=== PATIENT | male | born 1950 | race Caucasian/White ===

== ENCOUNTER 2019-02-13 01:39 | Inpatient (IN) ==
[2019-02-13] MEDS ORDERED: Naloxone 0.4 MG/ML INJ IVP PRN (02:40)
[2019-02-13] MEDS ORDERED: *HR* Dextrose 50 % in Water (Syg) 50 ML SYRINGE IVP PRN (02:42)
[2019-02-13] MEDS ORDERED: D5% in Water 1,000 ML IVC PRN (02:42)
[2019-02-13] MEDS ORDERED: Dextrose Gel 15 GM/37.5 ML TUBE PO PRN ×2 (02:42)
[2019-02-13] MEDS ORDERED: *HR* Heparin 5,000 UNIT/ML VIAL IVP PRN ×2 (03:44)
[2019-02-13] MEDS ORDERED: *HR* Heparin 5,000 UNIT/ML VIAL IVP ONE (03:44)
[2019-02-13] MEDS: Heparin 25,000 UNIT/250 ML D5W 25,000 UNIT/250 ML IV.SOLN IVC SCH ×2 (04:00→20:10)
[2019-02-13 04:17] LABS: Hematocrit 51.3 % (37.5-50.1); Mean Corpuscular HGB Conc 33.1 g/dL (31.6-35.5); Mean Corpuscular Hemoglobin 27.4 pg (28.0-33.3); Mean Corpuscular Volume 82.6 fL (83.0-100.0); Mean Platelet Volume 9.5 fL (9.4-12.4); Platelet Count 138 K/mcL (140-400); Red Blood Count 6.21 M/mcL (4.19-5.50); Red Cell Distribution Width 18.6 % (11.5-14.5)
--- NOTE | 2019-02-13 04:23 | Internal Med History&Physical ---
Date of Encounter: 02/13/19 Time of Encounter: 02:53 Internal Medicine - H&P: HPI Chief complaint: COPD exacerbation Admitted From: Hospital to Hospital Transfer Plans for Post Hospital Care: Home History of present illness: Mr. Perez is a 68 year old male Patient presented to the [facility] emergency room with shortness of breath. He is noticed over the last few days that with exertion patient has been having weakness and sluggishness the more he moves. He says he would get more short of breath even with walking to his kitchen. He is on oxygen at home at 3 L but despite oxygen supplementation he still felt short of breath. He is a 2 pack per day smoker. He has also had increased cough which is productive of dark sputum. He had a fall at his home, but decided not to come to the emergency room because he did not see a reason to at the time. Due to his worsening symptoms, he came to the emergency room for further evaluation. In the [facility] emergency room patient's initial vital signs were: Blood pressure 110/84, temperature 97.7, pulse 112, respirations 27, oxygen 77% on 6 L. Labs from [facility] are as follows: CBC: White blood count 7.5, hemoglobin 17.6, hematocrit 52.8, platelets 148. ABG: PH 7.42, PCO2 30, PO2 38. BMP: Sodium 127, potassium 4.9, chloride 93, CO2 19, BUN 27, creatinine 1.65, glucose 124. GFR 41.62. Troponin: Initial 0.18, repeat after 2 hours 0.17. Normal reference range 0.0002 0.056. D-dimer: 1902 BNP: 3084.70 INR 1.51 EKG showed sinus tachycardia with a rate of 101 QTC of 444 Chest x-ray showed bibasilar haziness with possible infiltrate. While at the emergency room patient informed the staff there that he would not want to be resuscitated or intubated under any circumstances. Paperwork was completed regarding this. Because of his elevated d-dimer a CT angiogram was desired but could not be performed due to kidney function. He was started on Rocephin, azithromycin, Solu-Medrol and breathing treatments at the [facility] emergency room. He was also given Lasix for possible CHF. He is also started on heparin drip due to possibility of clot. He was then transferred to [facility] for further management. Upon my evaluation, patient is resting comfortably in the hospital bed in no acute distress. He denies chest pain, abdominal pain, nausea, vomiting, diarrhea and constipation. He says he has a history of hemachromatosis, and gets monthly phlebotomy. He says his breathing has become much better after the treatments. Ga catheter has been placed and he is having adequate output. He confirms with me his CODE STATUS being DNR/DNI. He recalls family history of heart disease on his father's side of the family, and his mother had diabetes. But despite this he says his parents lived long lives. Past Med Surg Social Fam HX - Past Medical History Medical history: COPD, diabetes, hypertension, renal disease Additional medical history: lung fibrosis Psychiatric history: no psych history - Past Surgical History Additional surgical history: pt unable to remember surgeries currently - Social History Smoking Status: Current every day smoker Packs per day: 2 Smokeless Tobacco Status: No Alcohol use: none Drug use: none Internal Medicine - H&P: Meds Allergy/AdvReac Type Severity Reaction Status Date / Time rofecoxib [From Vioxx] Allergy Rash Verified 02/13/19 02:56 All Systems PM: A 10-system review of systems was performed and is negative for pertinent fin dings except as documented above in the HPI. - Constitutional Vitals: Temp Pulse Resp BP Pulse Ox 97.7 F 98 20 114/88 89 02/13/19 01:48 02/13/19 01:48 02/13/19 01:48 02/13/19 01:48 02/13/19 01:48 General appearance: Present: cooperative, A&O X 3, pleasant, no acute distress, answers questions appropriately Exam: - - Head Head exam: Present: normal inspection - Eye Eye exam: Present: EOMI, normal appearance - Respiratory Respiratory exam: Present: decreased breath sounds, CTAB. Absent: rales, respiratory distress, rhonchi, wheezes - Cardiovascular Cardiovascular exam: Present: RRR. Absent: diastolic murmur, systolic murmur - GI/Abdominal GI/Abdominal exam: Present: normal bowel sounds, soft. Absent: tenderness - Extremities Exam Extremities exam: Present: warm, radial pulses palpable and symmetrical. Absent: pedal edema, tenderness - Neurological Exam Neurological exam: Present: no focal deficits, strengths equal and symetr throughout. Absent: motor sensory deficit, facial droop, speech deficit - Skin Skin exam: Present: dry, normal color, warm Internal Med - H&P Results - Labs CBC & Chem 7: 02/13/19 03:46 02/13/19 03:46 Labs: Short CBC 02/13/19 Range/Units 03:46 WBC 4.3 (4.3-11.1) K/mcL Hgb 17.0 H (12.9-16.9) g/dL Hct 51.3 H (37.5-50.1) % Plt Count 138 L (140-400) K/mcL - Assessment and Plan (1) Shortness of breath Current Visit: Yes Status: Acute Assessment and plan: Secondary to COPD exacerbation and possible CHF. Patient's x-ray also shows possible infiltrate. Blood cultures were drawn at [facility]. He was started on ceftriaxone and azithromycin, given Lasix and breathing treatments.patient also had elevated d-dimer, and was started on heparin drip prior to a CT angiogram being performed. Follow-up blood cultures when available Continue IV antibiotics Continue IV Lasix Continue breathing treatments Continue steroids Echocardiogram in the morning Strict I's and O's Daily weights Obtain CT angiogram (2) COPD exacerbation Current Visit: Yes Status: Acute Assessment and plan: Patient has long history of smoking, states he smokes 2 packs per day. Continue breathing treatments Continue steroids Continue IV antibiotics (3) Elevated d-dimer Current Visit: Yes Status: Acute Assessment and plan: D-dimer elevated [place] 1902. CT angiogram cannot be performed due to LESA. On repeat labs patient's renal function has improved. CT angiogram to rule out PE Continue heparin drip until confirmed no PE (4) Diabetes Current Visit: Yes Status: Acute Assessment and plan: Patient is not an insulin dependent diabetic Monitor sugars ACHS Diabetic diet Low dose insulin sliding scale as needed Hold home meds. Qualifiers: Diabetes mellitus type: type 2 Diabetes mellitus shelter insulin use: without long term care pharmacist use Diabetes mellitus complication status: without complication Qualified Code(s): E11.9 - Type 2 diabetes mellitus without complications (5) Elevated troponin Current Visit: Yes Status: Acute Assessment and plan: Patient's troponin was 0.07. Patient denies chest pain. EKG negative for acute ischemic changes. Patient started on heparin drip due to elevated d-dimer. Continue cardiac monitoring Continue to trend troponins Echocardiogram in the morning (6) CHF exacerbation Current Visit: Yes Status: Acute Assessment and plan: Patient's BNP was 3084. Patient was given Lasix at the [facility] emergency room. Continue IV Lasix Echocardiogram in the morning Qualifiers: Heart failure type: unspecified Qualified Code(s): I50.9 - Heart failure, unspecified (7) Hyponatremia Current Visit: Yes Status: Acute Assessment and plan: Patient's sodium was low at [facility], on repeat patient's sodium was 126. Obtain urinalysis Urine sodium Urine osmolality Treatment pending results of these labs (8) Hemochromatosis Current Visit: Yes Status: Acute Assessment and plan: Patient has elevated hemoglobin of 17.6, on repeat labs here his hemoglobin is 17.0. He is also a chronic smoker Continue to monitor Qualifiers: Hemochromatosis type: unspecified Qualified Code(s): E83.119 - Hemochromatosis, unspecified (9) Nicotine abuse Current Visit: Yes Status: Acute Assessment and plan: Patient declines nicotine patch (10) DVT prophylaxis Current Visit: Yes Status: Acute Assessment and plan: Heparin drip - Time Spent With Patient Total time spent is greater than 50% in coordination of care (as documented) at patient's floor/unit and/or counseling patient: Greater than 35 minutes
[2019-02-13 04:24] LABS: Heparin anti-factor XA UFH 0.17 IU/mL (0.30-0.70)
[2019-02-13 04:25] LABS: INR 1.5; Prothrombin Time 16.8 Seconds (9.4-12.1)
[2019-02-13 04:36] LABS: Alanine Aminotransferase 19 Units/L (7-52); Albumin 3.7 g/dL (3.5-5.7); Albumin/Globulin Ratio 0.9 (1.1-2.2); Alkaline Phosphatase 145 Units/L (34-104); Aspartate Amino Transferase 26 Units/L (13-39); BUN/Creatinine Ratio 21 (6-26); Blood Urea Nitrogen 29 mg/dL (8-23); Carbon Dioxide 20 mEq/L (23-29); Chloride 96 mEq/L (98-107); Globulin 4.1 g/dL (2.4-3.5); Glucose 189 mg/dL (70-105); Osmolality,Calculated 273 (280-300); Potassium 4.1 mEq/L (3.5-5.1); Sodium 126 mEq/L (136-145); Total Protein 7.8 g/dL (6.4-8.9); eGFR For Non-African Americans 52 (> 60)
[2019-02-13] MEDS ORDERED: Albuterol 2.5 MG/3 ML NEBULIZER IH PRN (06:11)
[2019-02-13] MEDS ORDERED: Isovue-370 500 ML BOTTLE IVP ONE ×2 (06:17→17:09)
[2019-02-13 06:34] LABS: Bilirubin,Urine Negative (Negative); Blood,Urine Moderate (Negative); Clarity,Urine Clear (Clear); Color,Urine Yellow (Yellow); Glucose,Urine (UA) Normal (Normal); Ketones,Urine Negative (Negative); Leukocyte Esterase,Urine Negative (Negative); Nitrite,Urine Negative (Negative); PH,Urine 5.5 pH Units (5.0-8.0); Protein,Urine Negative (Neg-Trace); Specific Gravity,Urine 1.011 (1.010-1.025); Urobilinogen,Urine Normal (Normal)
[2019-02-13 06:42] LABS: Bacteria,Urine None Seen per hpf (None-Few); Hyaline Casts,Urine None Seen per lpf (None-Few); RBC,Urine 0-3 per hpf (0-3); Squamous Epithelial Cell,Urine None Seen per lpf (None-Few); WBC,Urine 0-3 per hpf (0-3)
[2019-02-13] MEDS ORDERED: Azithromycin 500 MG in D5% in Water 250 ML IVPB SCH (07:00)
[2019-02-13] MEDS ORDERED: Furosemide 40 MG/4 ML VIAL IVP SCH (09:00)
[2019-02-13] MEDS ORDERED: predniSONE 20 MG TABLET PO SCH (09:00)
[2019-02-13] MEDS: cefTRIAXone 1,000 MG in Water for inj. (sterile) 20 ML 10 ML IVP SCH (09:23)
[2019-02-13] MEDS: Insulin LISPRO 300 UNITS/3 ML VIAL SQ SCH ×4 (09:24→20:41)
[2019-02-13] MEDS: Ipratropium/Albuterol Neb 3 ML IH SCH ×3 (11:01→22:29)
[2019-02-13] MEDS ORDERED: Furosemide 20 MG/2 ML VIAL IVP ONE (11:06)
--- NOTE | 2019-02-13 11:38 | Internal Med Progress Note ---
Hospitalist Progress Note - Encounter Date of Encounter: 02/13/19 Time of Encounter: 11:34 - Subjective Interval History: Pt stated that his breathing is much better, over 50% better than yesterday. - Exam Vitals: Temp Pulse Resp BP Pulse Ox 97.1 F L 88 12 103/77 91 02/13/19 06:55 02/13/19 06:55 02/13/19 05:03 02/13/19 06:55 02/13/19 06:55 Exam: Gen: s1, S2 RRR lungs: Still has crackles bilateral base of lungs Abd: soft, NT/ND, BS+alll 4Q Le: 2+ pitting edema - Summary of Assessment and Plan Summary of Assessment and Plan: This is a 68 yom who presents with acute resp failure 1) acute resp faliure hypoxemic At this time, pt is improving. Still has crakcles in bilat base of lungs; will wait for the echo to come back on lasix IV 40 dailiy, will give another lasix 40 --furthe diruesis 2) CAP: will check procalcitonin, infiltrate could be due to edema mean while cont abx 3) elevaed ddimer: await V/Q scan, if negative will d/c lasix 4)code: Full 5)deblity: PT/OT to see the pt 6)dispo: once duilresed, then dc probably in 1-2 days. Time: 35 min - Time Spent with Patient Total time spent is greater than 50% in coordination of care (as documented) at patient's floor/unit and/or counseling patient: Internal Medicine: Result - Labs CBC & Chem 7: 02/13/19 03:46 02/13/19 03:46 Labs: Short CBC 02/13/19 Range/Units 03:46 WBC 4.3 (4.3-11.1) K/mcL Hgb 17.0 H (12.9-16.9) g/dL Hct 51.3 H (37.5-50.1) % Plt Count 138 L (140-400) K/mcL BMP 02/13/19 03:46 Sodium 126 L Potassium 4.1 Chloride 96 L Carbon Dioxide 20 L BUN 29 H Creatinine 1.37 H Glucose 189 H Calcium 9.0 Cardiac Enzymes 02/13/19 02/13/19 Range/Units 03:46 08:35 Troponin I 0.07 H* 0.07 H* (< 0.04) ng/mL Liver Function 02/13/19 Range/Units 03:46 Total Bilirubin 2.0 H (0.3-1.0) mg/dL AST 26 (13-39) Units/L ALT 19 (7-52) Units/L Alkaline Phosphatase 145 H (34-104) Units/L Albumin 3.7 (3.5-5.7) g/dL Urine 02/13/19 Range/Units 06:24 Urine Color Yellow (Yellow) Urine Clarity Clear (Clear) Urine pH 5.5 (5.0-8.0) pH Units Ur Specific [place] 1.011 (1.010-1.025) Urine Protein Negative (Neg-Trace) mg/dL Urine Glucose (UA) Normal (Normal) mg/dL - ABG Interpretation ABG results: PT/INR, D-dimer PT 16.8 Seconds (9.4-12.1) H 02/13/19 03:49 Consult Discharge Plan - Plan Referrals: NONE,PCP [Primary Care Provider] -
[2019-02-13] MEDS ORDERED: Perflutren Lipid Microsphere 1.3 ML in 0.9 % Sodium Chloride 8.7 ML IVP ONE (14:48)
[2019-02-13] MEDS ORDERED: [UNRECOGNIZED DRUG - REMARK] PO SCH (17:15)
[2019-02-13] MEDS: Gabapentin 300 MG CAPSULE PO SCH (20:39)
[2019-02-13] MEDS: clonazePAM 0.5 MG TABLET PO SCH (20:39)
[2019-02-13] MEDS: Acetaminophen 325 MG TABLET PO PRN (20:39)
[2019-02-13] MEDS: Furosemide 40 MG/4 ML VIAL IVP SCH (20:40)
[2019-02-13] MEDS: [UNRECOGNIZED DRUG - REMARK] PO SCH (20:41)
[2019-02-13] MEDS: (Fluticasone/Vilanterol [Breo Ellipta 100-25 Mcg Inh]) IH SCH (20:41)
[2019-02-13] MEDS ORDERED: traMADol 50 MG TABLET PO PRN (21:31)
[2019-02-13] MEDS ORDERED: *HR* HYDROcodone/Acet 5/325 mg TABLET PO ONE (22:02)
[2019-02-14] MEDS ORDERED: HYDROcodone BIT/Homatropine 5 MG TABLET PO ONE (00:35)
[2019-02-14] MEDS ORDERED: Acetaminophen 325 MG TABLET PO ONE (00:37)
[2019-02-14] MEDS: Ipratropium/Albuterol Neb 3 ML IH SCH ×4 (03:52→19:55)
[2019-02-14 05:27] LABS: Basophils % 0.1 %; Hematocrit 48.8 % (37.5-50.1); Hemoglobin 16.2 g/dL (12.9-16.9); Immature Granulocytes % 0.5 % (0-4); Lymphocytes # 0.5 K/mcL (0.6-4.6); Lymphocytes % 6.5 %; Mean Corpuscular HGB Conc 33.2 g/dL (31.6-35.5); Mean Corpuscular Hemoglobin 27.4 pg (28.0-33.3); Mean Corpuscular Volume 82.4 fL (83.0-100.0); Mean Platelet Volume 10.2 fL (9.4-12.4); Monocytes # 0.4 K/mcL (0.0-1.3); Monocytes % 5.5 %; Platelet Count 150 K/mcL (140-400); Red Blood Count 5.92 M/mcL (4.19-5.50); Red Cell Distribution Width 18.8 % (11.5-14.5); Segmented Neutrophils % 87.4 %
[2019-02-14 05:36] LABS: Albumin 3.8 g/dL (3.5-5.7); Bilirubin,Total 1.5 mg/dL (0.3-1.0); Calcium 9.4 mg/dL (8.6-10.3); Globulin 3.9 g/dL (2.4-3.5); Potassium 4.4 mEq/L (3.5-5.1); Total Protein 7.7 g/dL (6.4-8.9)
[2019-02-14] MEDS: Insulin LISPRO 300 UNITS/3 ML VIAL SQ SCH ×4 (07:57→21:24)
[2019-02-14] MEDS: Furosemide 40 MG/4 ML VIAL IVP SCH (08:29)
[2019-02-14] MEDS: (Fluticasone/Vilanterol [Breo Ellipta 100-25 Mcg Inh]) IH SCH (08:34)
[2019-02-14] MEDS: [UNRECOGNIZED DRUG - REMARK] PO SCH (08:35)
[2019-02-14] MEDS: Acetaminophen 325 MG TABLET PO PRN ×2 (08:38→14:38)
[2019-02-14] MEDS: clonazePAM 0.5 MG TABLET PO SCH ×2 (08:39→21:24)
[2019-02-14] MEDS: Gabapentin 300 MG CAPSULE PO SCH ×3 (08:39→21:24)
[2019-02-14] MEDS: cefTRIAXone 1,000 MG in Water for inj. (sterile) 20 ML 10 ML IVP SCH (08:40)
[2019-02-14] MEDS ORDERED: Isovue-370 500 ML BOTTLE IVP ONE (09:17)
--- NOTE | 2019-02-14 11:10 | Internal Med Progress Note ---
Hospitalist Progress Note - Encounter Date of Encounter: 02/14/19 Time of Encounter: 11:10 - Subjective Interval History: Pt is very anxious and he is getting the anxiety pill, threatend to leave AMA. - Exam Vitals: Temp Pulse Resp BP Pulse Ox 97.8 F 83 24 114/75 100 02/14/19 07:52 02/14/19 07:52 02/14/19 10:46 02/14/19 07:52 02/14/19 10:46 Exam: gen: anxious Heart: s1, S2 RRR lungs: Still has crackles bilateral base of lungs, much improved Abd: soft, NT/ND, BS+alll 4Q Le: 2+ pitting edema - Summary of Assessment and Plan Summary of Assessment and Plan: This is a 68 yom who presents with acute resp failure 1) acute resp faliure hypoxemic At this time, pt is improving. Still has crakcles in bilat base of lungs; Pt BP slightly low, willl do 40 PO BID Echo showed OK EF, but severe R ventricluar dilation, has R sided HF. Cont fluid resriciton as well. Will d/c heparin no PE 2) CAP: will check procalcitonin, infiltrate could be due to edema mean while cont abx 3) elevaed ddimer: await V/Q scan, if negative will d/c lasix 4)code: Full 5)deblity: PT/OT to see the pt 6)dispo: cont diruesis, really bad lungs, still on high oxygen demand of 10 Liters, add chest physio. Time: 35 min - Time Spent with Patient Total time spent is greater than 50% in coordination of care (as documented) at patient's floor/unit and/or counseling patient: Internal Medicine: Result - Labs CBC & Chem 7: 02/14/19 04:28 02/14/19 04:28 Labs: Short CBC 02/14/19 Range/Units 04:28 WBC 8.0 D (4.3-11.1) K/mcL Hgb 16.2 (12.9-16.9) g/dL Hct 48.8 (37.5-50.1) % Plt Count 150 (140-400) K/mcL Neutrophils # 7.0 (1.6-8.9) K/mcL BMP 02/14/19 04:28 Sodium 129 L Potassium 4.4 Chloride 97 L Carbon Dioxide 25 BUN 39 H Creatinine 1.45 H Glucose 236 H Calcium 9.4 Liver Function 02/14/19 Range/Units 04:28 Total Bilirubin 1.5 H (0.3-1.0) mg/dL AST 29 (13-39) Units/L ALT 21 (7-52) Units/L Alkaline Phosphatase 128 H (34-104) Units/L Albumin 3.8 (3.5-5.7) g/dL - ABG Interpretation ABG results: PT/INR, D-dimer PT 16.8 Seconds (9.4-12.1) H 02/13/19 03:49 - Impressions Impressions Echocardiogram 02/13/19 04:54 Impressions: LVEF 60%. Mild left ventricular diastolic dysfunction. Definity echo contrast was used. Right ventricle is moderate-severely dilated with moderate systolic dysfunction. There is septal wall flattening during systole suggesting RV pressure overload. DDx should include pulmonary embolism. Severely dilated right atrium. Moderate tricuspid regurgitation. Mild pulmonic regurgitation. Severe pulmonary hypertension. The IVC is dilated. No prior echo for comparison. Findings communicated to ordering provider. Left Ventricular Wall Motion: Rest Echo Findings All wall segments showed normal motion. Findings: Study Quality * Technically adequate exam. ECG Findings * Normal sinus rhythm. Left Ventricle * LVEF 60%. * Normal LV chamber size, wall thickness and function. * Mild left ventricular diastolic dysfunction. * Definity echo contrast was used. Right Ventricle * Right ventricle is moderate-severely dilated with moderate systolic dysfunction. Left Atrium * Normal left atrial size. Right Atrium * Severely dilated right atrium. Aortic Valve * No aortic regurgitation. * Trileaflet aortic valve. * Mildly thickened aortic valve leaflets. * No aortic stenosis. Mitral Valve * No mitral regurgitation. * Mitral valve not well visualized. * No mitral stenosis. Tricuspid Valve * Normal tricuspid valve structure. * Moderate tricuspid regurgitation. * Estimated RA pressure is 20 mmHg. * Estimated RVSP is 71 mmHg. * Severe pulmonary hypertension. Pulmonic Valve * Pulmonic valve is not well visualized. * No pulmonic stenosis. * Mild pulmonic regurgitation. Pulmonary Artery * Pulmonary artery not well visualized. Aorta * Normally sized aortic root. Pericardium * There is no pericardial effusion present. Interatrial Septum * No evidence of PFO by color Doppler. IVC * The IVC is dilated. * < 50% respiratory change. Pulmonary Perfusion Imaging 02/13/19 07:56 IMPRESSION: Exam is technically intermediate probability for pulmonary embolism. D/ / Jordan Johnson MD / Jordan Johnson MD Interpreting Provider: Jordan Johnson MD Chest CTA 02/14/19 09:00 IMPRESSION: 1. No acute pulmonary embolus. 2. Emphysematous changes. There are likely subtle areas of superimposed fibrotic changes with questionable areas of honeycombing and bronchiectasis. 3. Dilated right atrium with reflux of contrast in the IVC and hepatic veins, which can be seen in setting of right heart failure. 4. There is mild interlobular septal thickening which is nonspecific without significant ground-glass attenuation. Findings may reflect mild edema. 5. Mild mediastinal and hilar adenopathy, nonspecific but likely reactive. D/ / 02/14/2019 09:57:00 Maria A Dougherty MD / Marley Small Interpreting Provider: Maria A Dougherty MD Consult Discharge Plan - Plan Referrals: Monique Mann MD [Non-Partnered Physician] -
[2019-02-14 11:42] LABS: ABG Base Excess 0 mEq/L (-2 to 3); ABG HCO3 26 mEq/L (21-27); ABG Oxygen Saturation 93 % (95-98); ABG PCO2 46 mmHg (35-45); ABG PH 7.36 pH Units (7.32-7.45); ABG PO2 70 mmHg (85-104); ABG TCO2 27 mEq/L (20-26)
[2019-02-14] MEDS ORDERED: Loratadine 10 MG TABLET PO SCH (12:15)
[2019-02-14] MEDS: Budesonide/Formoterol 80/4.5 MDI IH SCH ×2 (15:34→19:54)
[2019-02-14] MEDS ORDERED: Furosemide 40 MG TABLET PO SCH (17:00)
[2019-02-14] MEDS ORDERED: Sennosides/Docusate Sodium TABLET PO PRN (21:26)
[2019-02-15] MEDS: Ipratropium/Albuterol Neb 3 ML IH SCH (03:50)
[2019-02-15 05:32] LABS: Basophils % 0.3 %; Eosinophils # 0.1 K/mcL (0.0-0.6); Eosinophils % 0.5 %; Hematocrit 50.4 % (37.5-50.1); Hemoglobin 16.5 g/dL (12.9-16.9); Immature Granulocytes % 0.4 % (0-4); Lymphocytes # 1.4 K/mcL (0.6-4.6); Lymphocytes % 12.7 %; Mean Corpuscular HGB Conc 32.7 g/dL (31.6-35.5); Mean Corpuscular Hemoglobin 27.4 pg (28.0-33.3); Mean Corpuscular Volume 83.7 fL (83.0-100.0); Mean Platelet Volume 9.3 fL (9.4-12.4); Monocytes # 0.7 K/mcL (0.0-1.3); Monocytes % 6.5 %; Neutrophils # 8.9 K/mcL (1.6-8.9); Platelet Count 141 K/mcL (140-400); Red Blood Count 6.02 M/mcL (4.19-5.50); Segmented Neutrophils % 79.6 %
[2019-02-15 05:50] LABS: Alanine Aminotransferase 33 Units/L (7-52); Albumin/Globulin Ratio 1.1 (1.1-2.2); Alkaline Phosphatase 125 Units/L (34-104); Aspartate Amino Transferase 39 Units/L (13-39); BUN/Creatinine Ratio 30 (6-26); Bilirubin,Total 1.3 mg/dL (0.3-1.0); Blood Urea Nitrogen 37 mg/dL (8-23); Calcium 9.8 mg/dL (8.6-10.3); Carbon Dioxide 27 mEq/L (23-29); Chloride 97 mEq/L (98-107); Globulin 3.8 g/dL (2.4-3.5); Glucose 206 mg/dL (70-105); Osmolality,Calculated 289 (280-300); Potassium 4.1 mEq/L (3.5-5.1); Sodium 132 mEq/L (136-145); Total Protein 7.8 g/dL (6.4-8.9); eGFR For Non-African Americans 58 (> 60)
[2019-02-15 07:27] VITALS: BP 130/84
[2019-02-15] MEDS: Budesonide/Formoterol 80/4.5 MDI IH SCH (07:33)
--- NOTE | 2019-02-15 11:07 | Discharge Summary ---
Date of Encounter: 02/15/19 Time of Encounter: 11:06 Hospital course: This is AMA note: I went to talk to the pt twice, I told im that with oxygen in 80s he might if he leaves hospital. I need to send him to rehab or wean him down the oxygne. He reused and left AMA. - Time Spent with Patient Total time spent providing and/or coordinating discharge services: - Discharge Medications Prescriptions: Continued Levocetirizine Dihydrochloride [Allergy Relief (Xyzal)] 5 mg PO DAILY Furosemide [Lasix] 40 mg PO DAILY Gabapentin 600 mg PO TID Fluticasone/Vilanterol [Breo Ellipta 100-25 Mcg INH] 1 puff IH DAILY clonazePAM [Clonazepam] 0.5 mg PO BID Albuterol Sulfate [Albuterol Inhaler] 2 puff IH Q4HR PRN PRN Reason: Shortness Of Breath Discontinued Metformin HCl [Glucophage] 1,000 mg PO BID Umeclidinium [place] [Incruse Ellipta] 1 puff IH DAILY Linagliptin [Tradjenta] 5 mg PO DAILY Home Medications: Albuterol Sulfate [Albuterol Inhaler] 2 puff IH Q4HR PRN 02/13/19 [History] Fluticasone/Vilanterol [Breo Ellipta 100-25 Mcg INH] 1 puff IH DAILY 02/13/19 [History] Furosemide [Lasix] 40 mg PO DAILY 02/13/19 [History] Gabapentin 600 mg PO TID 02/13/19 [History] Levocetirizine Dihydrochloride [Allergy Relief (Xyzal)] 5 mg PO DAILY 02/13/19 [History] clonazePAM [Clonazepam] 0.5 mg PO BID 02/13/19 [History] Allergies/Adverse Reactions: Allergy/AdvReac Type Severity Reaction Status Date / Time rofecoxib [From Vioxx] Allergy Rash Verified 02/13/19 02:56 Date of admission: 02/13/19 01:39 Primary care physician: PCP NONE Consults: 02/13/19 06:11 Consult to Nurse Navigator [CONS] Routine Comment: - Constitutional Vitals: Temp Pulse Resp BP Pulse Ox 96.5 F L 86 18 130/84 90 02/15/19 07:19 02/15/19 07:19 02/15/19 07:33 02/15/19 07:19 02/15/19 07:33 General appearance: Present: cooperative, A&O X 3, pleasant, no acute distress, answers questions appropriately Exam: gen: anxious Heart: s1, S2 RRR lungs: Still has crackles bilateral base of lungs, much improved Abd: soft, NT/ND, BS+alll 4Q Le: 2+ pitting edema - Patient Status Disposition: Left Against Medical Advice Condition: Serious - Discharge Instructions Follow Up With: Monique Mann MD [Non-Partnered Physician] -
== END 2019-02-15 10:37 | disposition left against medical advice (07) | DRG 189 ==
LOC: 2NENU → OBSVTOIN 01:39 → SUATTDRO 01:39
PROVIDERS: ADMIT Family Medicine; ATTEND Internal Medicine